=== PATIENT | female | born 1945 | race Caucasian/White ===

== ENCOUNTER 2025-02-01 09:33 | Emergency (ER) | payer MEDICARE, OTHER ==
[~2025-02-01] VITALS: Ht 162.6 cm; Wt 70.0 kg
[~2025-02-01 09:33] MED LIST: ASPI-12 PO; CALC600T2 PO; CELE200C PO; CHOL200026 PO; ESCI10TA PO; MULT-227 PO; PRAV10TA12 PO
--- NOTE | 2025-02-01 10:23 | ELECTROCARDIOGRAPH REPORT ---
[facility] [place] Test Date: 2025-02-01 Test Time: 09:39:00 Pat Name: ZANDER COOK Department: EMERGENCY ROOM Room: Gender: F [employer] Helper: HIRAL : 1945 Requested By: ALEXIS ONTIVEROS Order Number: [id number] Reading MD: Dr. SAMUEL Esteves Measurements Intervals [place] Rate: 77 P: 71 MN: 140 QRS: 38 QRSD: 71 T: -74 QT: 467 QTc: 529 Interpretive Statements Sinus rhythm Probable left atrial enlargement Low voltage, extremity and precordial leads Borderline repolarization abnormality Prolonged QT interval Electronically Signed On 02-02-2025 19:39:[address] SAMUEL Esteves Please click the below link to view image of tracing.
--- NOTE | 2025-02-01 10:24 | Physician Documentation ---
Addendum CHIEF COMPLAINT/HPI: The patient is a 79-year-old female with no significant past medical history who comes in with intermittent left arm tingling and occasionally pain over the past two weeks. She has been carrying her 40 lb grand son quite a bit during this time. She has no history of TIA/CVA and no history of coronary artery disease. She denies any chest pain or shortness of breath. She denies any facial or leg weakness or tingling, trouble finding words or other focal neurological signs and symptoms. REVIEW OF SYSTEMS: Constitutional: Denies chills, fatigue, fever, weight gain or weight loss. HEENT: Denies hearing loss, sinus pressure or visual changes. Respiratory: Denies cough, shortness of breath or wheezing. Cardiovascular: Denies chest pain, pain while walking (claudication), edema or palpitations. Gastrointestinal: Denies abdominal pain, blood in stool, constipation, diarrhea, heartburn, loss of appetite, nausea or vomiting. Genitourinary: Denies painful urination (dysuria), excessive amount of urine (polyuria) or urinary frequency. Metabolic/Endocrine: Denies cold intolerance, heat intolerance, excessive thirst (polydipsia) or excessive hunger (polyphagia). Neurological: Denies dizziness, extremity numbness, extremity weakness, headaches, seizures or tremors. Psychiatric: Denies anxiety or depression. Integumentary: Denies breast discharge, breast lump, hives, mole change(s), rash or skin lesion. Musculoskeletal: Left arm tingling/numbness/pain intermittently over the past two weeks. Hematologic: Denies easily bleeding, easily bruises, lymphedema or issues with blood clots. Immunologic: Denies food allergies or seasonal allergies. PHYSICAL EXAMINATION: Vitals and nursing note reviewed. Constitutional: General: Patient is awake, alert, oriented x 4 in no acute distress and well appearing. Speech is clear and lucid. Appearance: Normal appearance. Patient is not ill-appearing, toxic-appearing or diaphoretic. HENT: Head: Normocephalic and atraumatic. Mouth: Mucous membranes are moist. Pharynx: Oropharynx is clear. Eyes: General: No scleral icterus. Extraocular Movements: Extraocular movements intact. Pupils: Pupils are equal, round, and reactive to light. Neck: Supple, no Kernig or Brudzinski sign. Cardiovascular: Rate and Rhythm: Normal rate and regular rhythm. Heart sounds: No murmur heard. Pulmonary: Effort: No respiratory distress. Breath sounds: No wheezing, rhonchi or rales. Abdominal: General: There is no distension. Palpations: There is no fluid wave, hepatomegaly or mass. Tenderness: There is no abdominal tenderness. There is no guarding. Musculoskeletal: General: No swelling or deformity. Skin: Coloration: Skin is not jaundiced. Findings: No erythema or rash. Neurological examination: GCS: E-4, V-5, M-6 Motor strength: 5/5 Sensory: Intact skills instructor: II - XII intact Equilibratory intact MEDICAL DECISION MAKIN02/01/2025, 10:50 a.m.: Tele neurology feels that the likelihood of a stroke is extremely low but recommends an outpatient or emergency department MRI without admission to the hospital. 02/01/2025, 1:42 p.m.: I have just been advised that are MRI in the hospitalist down and in order to get an MRI for this patient she will have to go by EMS to an MRI outside the hospital. The patient decided that she would prefer to follow up with her PCP on Tuesday. Given that the likelihood of her symptoms would be caused by TIA/CVA is very low I am going to discharge her for follow-up as an outpatient. Departure Disposition: HOME / SELF CARE / HOMELESS Impression: Primary Impression: Numbness and tingling in left arm Condition: Stable Additional Instructions: Please return for worsening symptoms or new/unusual symptoms if these occur prior to follow-up with your provider. It is important to see your doctor or primary care provider. Emergency care may be incomplete without proper follow-up. Symptoms sometimes change or new symptoms might arise after you leave the emergency department. It is important that you call your doctor if you become worse in any way, or return to the emergency department. You are strongly urged to follow-up with your physician to assure complete and thorough care. Please call your doctor's office today, and informed them that you were seen in the emergency department, and that you need to be seen immediately for close follow-up. If you do not have a primary care doctor we encourage you to proactively seek a local physician for close follow-up. Consider local clinics, [facility], or local [facility]. Prior to discharge we spoke at length concerning sym ptoms that would merit reevaluation, but please return to the emergency department for any symptoms that are concerning to you, and we will be happy to continue your evaluation and treatment. Please note you can always return to the emergency department if you are having difficulty coordinating close follow-up. If medications were prescribed, you should fill them at your local pharmacy immediately and take only as prescribed. Bring your new medications to your doctors follow-up visit to discuss any changes that would be necessary. Please check [facility] for any results you did not receive in the Emergency Department: often we are unable to get all your tests back before you leave, and these tests need to be reviewed by your PCP and yourself. You can also call Medical Records if you are unable to access the internet to see [facility]. Return to the emergency department immediately for worsening chest pain, difficulty breathing, sweating, or other concerning emergent symptoms. Education Educated: Patient Educated regarding: diagnosis, treatment, prognosis, need for follow up ALEXIS ONTIVEROS MD Feb 01, 2025 10:24
[2025-02-01 10:29] LABS: MEAN PLATELET VOLUME 8.1 FL (7.4-10.4); RED CELL DISTRIBUTION WIDTH 14.2 % (11.5-14.5)
[2025-02-01 10:37] LABS: INR 1.0 INR
[2025-02-01 10:51] LABS: CREATININE 0.71 MG/DL (0.40-0.90); TOTAL CARBON DIOXIDE 28.8 MMOL/L (24-32); eCRCL 56 ML/MIN; eGFR 80 ML/MIN
[2025-02-01 11:15] VITALS: TEMP 97.2
[2025-02-01 13:58] VITALS: BP 114/55; PULSE 69; RESP 17; O2SAT 99
== END 2025-02-01 14:00 | disposition home or self-care (01) ==
LOC: ER 09:34
DX: R20.2 Paresthesia of skin (principal); R20.0 Anesthesia of skin; Z79.899 Other long term (current) drug therapy
CPT/HCPCS: 36415; 80048; 83735; 84484; 85025; 85610; 93005; 99284